=== PATIENT | male | born 2000 | race Caucasian/White ===

== ENCOUNTER 2019-12-06 18:37 | Emergency (ER) | payer OTHER ==
[2019-12-06 19:04] VITALS: BP 152/80
[2019-12-06 19:24] LABS: Influenza A Molecular POSITIVE (Negative)
--- NOTE | 2019-12-06 19:48 | UC ---
UC General HPI - HPI Summary HPI Summary: + fever, cough, flu like sx x 3 days no rash decreased appetite no sob, but + fatigue No gu sx no n/v/d. - History of Current Complaint Chief Complaint: UCGeneralIllness Stated Complaint: FLU LIKE SYMPTOMS Time Seen by Provider: 12/06/19 19:33 Hx Obtained From: Patient Pain Intensity: 0 - Allergy/Home Medications Allergies/Adverse Reactions: Allergies Allergy/AdvReac Type Severity Reaction Status Date / Time No Known Allergies Allergy Verified 12/06/19 19:00 Home Medications: Home Medications Benzonatate CAP* [Tessalon 100 MG CAP*] 100 mg PO TID PRN #30 cap 12/06/19 [Rx] Ibuprofen TAB* [Motrin TAB* 800 MG] 800 mg PO Q6H 12/06/19 [History Confirmed ] Oseltamivir CAP* [Tamiflu CAP*] 75 mg PO BID 5 Days #10 cap 12/06/19 [Rx] PMH/Surg Hx/FS Hx/Imm Hx Previously Healthy: Yes - Surgical History Surgical History: None - Family History Known Family History: Positive: Hypertension - Social History Alcohol Use: None Substance Use Type: None Smoking Status (MU): Never Smoked Tobacco - Immunization History Vaccination Up to Date: Yes Review of Systems All Other Systems Reviewed And Are Negative: Yes Constitutional: Positive: Fever, Fatigue Skin: Positive: Negative Eyes: Positive: Negative ENT: Positive: Sore Throat, Nasal Discharge Respiratory: Positive: Cough Cardiovascular: Positive: Negative Gastrointestinal: Positive: Negative Genitourinary: Positive: Negative Motor: Positive: Negative Neurovascular: Positive: Negative Musculoskeletal: Positive: Negative Neurological/Mental Status: Positive: Negative Psychological: Positive: Negative Is Patient Immunocompromised?: No Physical Exam Triage Information Reviewed: Yes Appearance: Well-Nourished - sitting, looks tired but nad Vital Signs: Initial Vital Signs Temp 98.7 F 12/06/19 19:01 Pulse 78 12/06/19 19:01 Resp 15 12/06/19 19:01 BP 152/80 12/06/19 19:01 Pulse Ox 99 12/06/19 19:01 Vital Signs Reviewed: Yes Eye Exam: Normal ENT: Positive: Pharyngeal erythema - mild post ph redness, Nasal congestion, TM dull Neck exam: Normal Neck: Positive: Supple, Nontender, No Lymphadenopathy Respiratory Exam: Other - + rhonchorus cough Respiratory: Positive: No respiratory distress, No accessory muscle use Cardiovascular Exam: Other - HR regular, correlates with radial pulse Cardiovascular: Positive: Brisk Capillary Refill Abdominal Exam: Normal Abdomen Description: Positive: Nontender Musculoskeletal Exam: Normal Neurological Exam: Normal - grossly nad Psychological Exam: Normal - grossly nonfocal Skin Exam: Normal - no visible or reported rash Course/Dx - Course Course Of Treatment: Influenza + Reviewed coa / tx plan. Questions as posed answered to the best of my ability. - Diagnoses Provider Diagnosis: Influenza Discharge ED - Sign-Out/Discharge Documenting (check all that apply): Patient Departure All imaging exams completed and their final reports reviewed: No Studies - Discharge Plan Condition: Stable Disposition: HOME Prescriptions: Benzonatate CAP* [Tessalon 100 MG CAP*] 100 mg PO TID PRN #30 cap PRN Reason: Cough Oseltamivir CAP* [Tamiflu CAP*] 75 mg PO BID 5 Days #10 cap Patient Education Materials: Influenza (ED) Forms: *Work Release Referrals: BERTO Bowie [Primary Care Provider] - Additional Instructions: Blood pressure 152/80 - please have this rechecked within 4 weeks by primary care provider Hydrate. Please seek medical attention for worse or new problems. - Billing Disposition and Condition Condition: STABLE Disposition: Home
== END 2019-12-06 19:55 | disposition home or self-care (01) ==
LOC: UCCORT 18:37
DX: J10.1 Influenza due to other identified influenza virus with other respiratory manifestations (principal)
CPT/HCPCS: 99202; G0463